=== PATIENT | female | born 1955 | race Two or more races ===

== ENCOUNTER → 2024-12-19 | Outpatient (BNVA) | payer MEDICAID, SELFPAY | END | disposition home or self-care (01) | PROVIDERS: PCP Internal Medicine; Referring Provider Internal Medicine; Visit Provider Urology | DX: N39.46 Mixed incontinence (principal); I48.91 Unspecified atrial fibrillation; F32.A Depression, unspecified; F41.9 Anxiety disorder, unspecified; E03.9 Hypothyroidism, unspecified; E66.9 Obesity, unspecified; Z68.36 Body mass index [BMI] 36.0-36.9, adult; H40.9 Unspecified glaucoma | CPT/HCPCS: 81003; 99212; G0463 ==